=== PATIENT | female | born 1965 | race Caucasian/White ===

== ENCOUNTER → 2017-06-15 | Outpatient (CLI) | payer MEDICAID ==
[~2017-06-15] MED LIST: ACHD5005 PO; ACYC800T PO; ATOR40TA70 PO; ATOR80TA76 PO; CETI10TA20 PO; CYCL10TA9 PO; CYCL5TAB PO; DOCU-143 PO; DULO30CA48 PO; GABA-488 PO; GLIM4TAB PO; LEVO125T6 PO; LINA5TAB PO; METF1000 PO; NAPR220T66 PO
--- NOTE | 2017-06-15 14:16 | Diagnostic Imaging Report ---
INDICATION: Aortic valve stenosis and chest pain. TIME OF EXAMINATION: 02:20 p.m. COMPARISON: Comparison is made with prior exam from 03/12/2016. FINDINGS: There is calcified granuloma in the left lower lobe. This appears stable. No infiltrates are detected. No effusion or pneumothorax is seen. The heart size is stable. IMPRESSION: Stable chest. No acute cardiopulmonary process is detected. Dictated by: Dictated on workstation # [id number]
== END ==
LOC: CARD 13:51
PROVIDERS: ATTEND Physician Assistant
DX: I35.0 Nonrheumatic aortic (valve) stenosis (principal); I25.10 Atherosclerotic heart disease of native coronary artery without angina pectoris; R07.89 Other chest pain; E78.2 Mixed hyperlipidemia
CPT/HCPCS: 71046; 93306

== ENCOUNTER → 2018-06-25 | Outpatient (CLI) | payer MEDICAID ==
[~2018-06-25] MED LIST changes: +METF-399 PO; -METF1000 PO
== END ==
LOC: CARD 10:03
PROVIDERS: ATTEND Physician Assistant
DX: I25.10 Atherosclerotic heart disease of native coronary artery without angina pectoris (principal); I51.7 Cardiomegaly; R07.9 Chest pain, unspecified; I10 Essential (primary) hypertension; I08.0 Rheumatic disorders of both mitral and aortic valves; I25.3 Aneurysm of heart
CPT/HCPCS: 93306

== ENCOUNTER → 2019-09-16 | Outpatient (CLI) | payer MEDICARE, MEDICAID ==
[~2019-09-16] MED LIST changes: -CETI10TA20 PO; +CETI10TA21 PO; -DULO30CA48 PO; +DULO30CA49 PO; -GLIM4TAB PO; +GLIM4TAB5 PO
== END ==
LOC: CARD 09:20
PROVIDERS: ATTEND Internal Medicine Cardiovascular Disease
DX: I25.10 Atherosclerotic heart disease of native coronary artery without angina pectoris (principal); E78.2 Mixed hyperlipidemia; I07.1 Rheumatic tricuspid insufficiency; I35.0 Nonrheumatic aortic (valve) stenosis; R00.2 Palpitations
CPT/HCPCS: 93306

== ENCOUNTER → 2020-08-13 | Outpatient (CLI) | payer MEDICARE, MEDICAID ==
[~2020-08-13] MED LIST changes: -CETI10TA21 PO; +CETI10TA49 PO
[2020-08-15 09:31] VITALS: BP 136/72
--- NOTE | 2020-08-15 09:31 | Cardiology Stress Test Report ---
Stress Test Report Date of Procedure/Referring: Date of Procedure: Aug 13, 2020 PCP Darline Cornell MD Admitting Physician Zac Crystal MD Indications: CP Baseline Heart Rate: 90 Baseline Blood Pressure: Blood Pressure Systolic: 136 Blood Pressure Diastolic: 72 Baseline EKG: Baseline EKG: Normal sinus rhythm Summary/Conclusion: Summary: In summary, the patient started exercising with a baseline heart rate, blood pressure and EKG mentioned above Patient was able to exercise for a total of 5minutes on Dima protocol, METs 7 Maximum heart rate 147 Maximum blood pressure 208/75 Stress EKG, Minimal nondiagnostic changes Recovery EKG , Return to baseline Conclusion: 1. Good exercise tolerance for a total of 5 minutes on Dima protocol, 7 METs, achieving 90 percent of maximum expected heart rate 2. Minimal nondiagnostic EKG changes with exercise returned to baseline during recovery 3. No arrhythmia was noted 4. Severe hypertensive response to exercise with peak blood pressure 208/75 return to baseline during recovery DARLINE CORNELL MD Aug 15, 2020 09:31
== END ==
LOC: CARD 10:57
PROVIDERS: ATTEND Internal Medicine Cardiovascular Disease
DX: R07.9 Chest pain, unspecified (principal)
CPT/HCPCS: 93017

== ENCOUNTER → 2021-01-14 | Outpatient (CLI) | payer MEDICARE, MEDICAID ==
[~2021-01-14] MED LIST changes: +ACYC-112 PO; -ACYC800T PO
== END ==
LOC: CARD 14:00
PROVIDERS: ATTEND Internal Medicine Cardiovascular Disease
DX: I11.9 Hypertensive heart disease without heart failure (principal); I08.2 Rheumatic disorders of both aortic and tricuspid valves
CPT/HCPCS: 93306

== ENCOUNTER → 2021-07-08 | Outpatient (CLI) | payer MEDICARE, MEDICAID ==
[~2021-07-08] MED LIST changes: +CYCL10TA25 PO; -CYCL10TA9 PO
== END ==
LOC: CARD 14:30
PROVIDERS: ATTEND Internal Medicine Cardiovascular Disease
DX: I35.0 Nonrheumatic aortic (valve) stenosis (principal); I11.9 Hypertensive heart disease without heart failure; I25.10 Atherosclerotic heart disease of native coronary artery without angina pectoris; I25.3 Aneurysm of heart
CPT/HCPCS: 93306